=== PATIENT | female | born 1985 | race Caucasian/White ===

== ENCOUNTER 2019-03-19 20:58 | Emergency (ER) | payer BC ==
[~2019-03-19] VITALS: Ht 167.6 cm; Wt 80.3 kg
[2019-03-19 23:49] VITALS: BP 114/76
== END 2019-03-19 23:49 | disposition home or self-care (01) ==
LOC: ED 20:58
DX: N94.6 Dysmenorrhea, unspecified (principal); D25.9 Leiomyoma of uterus, unspecified; N83.209 Unspecified ovarian cyst, unspecified side
CPT/HCPCS: J1885; J2270; Q0162